=== PATIENT | male | born 1995 | race African-American/Black ===

== ENCOUNTER 2016-07-13 21:26 | Emergency (ER) | payer OTHER ==
[~2016-07-13] VITALS: Ht 175.3 cm; Wt 81.0 kg
[2016-07-13] MEDS ORDERED: KETOROLAC TROMETHAMINE 60 MG/2 ML VIAL IM ONE (22:15)
[2016-07-13] MEDS ORDERED: CYCLOBENZAPRINE HCL 10 MG TABLET PO ONE (22:15)
[2016-07-13 22:52] VITALS: BP 120/72
== END 2016-07-13 23:12 | disposition home or self-care (01) ==
LOC: EMS 21:27
DX: S43.402A Unspecified sprain of left shoulder joint, initial encounter (principal); W01.0XXA Fall on same level from slipping, tripping and stumbling without subsequent striking against object, initial encounter; Y93.89 Activity, other specified; Y92.89 Other specified places as the place of occurrence of the external cause; Y99.8 Other external cause status
CPT/HCPCS: 29105; 73030; 96372; 99283; J1885

== ENCOUNTER 2016-09-17 02:51 | Emergency (ER) | payer OTHER ==
[~2016-09-17] VITALS: Ht 172.7 cm; Wt 74.6 kg
[2016-09-17 03:02] LABS: BASOPHILS % (AUTO) 0.7 % (0.0-2.0); HEMATOCRIT 44.4 % (41-53); HEMOGLOBIN 15.2 g/dL (13.5-17.5); LYMPHOCYTES # (AUTO) 2.5 K/uL (1.0-4.8); LYMPHOCYTES % (AUTO) 34.1 % (22.0-44.0); MEAN CORPUSCULAR HGB CONC 34.3 G/dL (31.0-37.0); MEAN CORPUSCULAR VOLUME 96 fL (80-100); MONOCYTES # (AUTO) 0.6 K/uL (0.1-1.0); MONOCYTES % (AUTO) 8.3 % (2.0-9.0); NEUTROPHILS # (AUTO) 4.1 K/uL (1.8-7.7); NEUTROPHILS % (AUTO) 55.9 % (40.0-70.0); PLATELET COUNT (AUTO) 195 K/uL (150-450); RED BLOOD CELL COUNT(AUTO) 4.61 MIL/uL (4.50-5.90); RED CELL DISTRIBUTION WIDTH 13.6 % (11.5-14.5); WHITE BLOOD COUNT (AUTO) 7.3 K/uL (4.5-11.0)
[2016-09-17 03:11] LABS: ANION GAP 12 mmol/L (8-16); CALCIUM, TOTAL 8.5 mg/dL (8.8-10.5); CARBON DIOXIDE 25 mmol/L (22-29); CHLORIDE 106 mmol/L (98-107); CREATININE 1.35 mg/dL (0.60-1.30); GLOMERULAR FILTR. RATE CALC > 60 mL/min (>60); POTASSIUM 3.6 mmol/L (3.5-5.1); SODIUM SERUM 143 mmol/L (136-145); UREA NITROGEN, BLOOD 11 mg/dL (7-18)
[2016-09-17 04:32] LABS: APPEARANCE,URINE CLEAR (CLEAR); GLUCOSE, URINE (UA) NEGATIVE (NEGATIVE); KETONES,URINE NEGATIVE (NEGATIVE); LEUKOCYTE ESTERASE ,URINE NEGATIVE (NEGATIVE); OCCULT BLOOD,URINE NEGATIVE (NEGATIVE); PROTEIN,URINE NEGATIVE (NEGATIVE)
[2016-09-17 04:49] LABS: RBC,URINE None Seen /HPF (0-2); SQUAMOUS EPITHELIAL CELL,UR Rare /LPF (None Seen); WBC,URINE None Seen /HPF (0-5)
[2016-09-17 04:54] VITALS: BP 124/69
== END 2016-09-17 05:57 | disposition home or self-care (01) ==
LOC: EMS 02:52
DX: S06.0X9A Concussion with loss of consciousness of unspecified duration, initial encounter (principal); S51.011A Laceration without foreign body of right elbow, initial encounter; S05.11XA Contusion of eyeball and orbital tissues, right eye, initial encounter; S60.512A Abrasion of left hand, initial encounter; F10.129 Alcohol abuse with intoxication, unspecified; F14.10 Cocaine abuse, uncomplicated; V03.99XA Pedestrian with other conveyance injured in collision with car, pick-up truck or van, unspecified whether traffic or nontraffic accident, initial encounter; Y93.02 Activity, running; Y92.810 Car as the place of occurrence of the external cause; Y99.8 Other external cause status; Y90.8 Blood alcohol level of 240 mg/100 ml or more
CPT/HCPCS: 36415; 70450; 71010; 72125; 72170; 73080; 73130; 80048; 80307; 81001; 85025; 99285; G0480

== ENCOUNTER 2017-08-13 10:46 | Emergency (ER) | payer OTHER ==
[~2017-08-13] VITALS: Ht 175.3 cm; Wt 80.0 kg
[2017-08-13] MEDS ORDERED: IBUPROFEN 800 MG TABLET PO ONE (12:30)
[2017-08-13 12:52] VITALS: BP 129/75
== END 2017-08-13 12:53 | disposition home or self-care (01) ==
LOC: EMS 10:47
DX: S83.91XA Sprain of unspecified site of right knee, initial encounter (principal); R03.0 Elevated blood-pressure reading, without diagnosis of hypertension; F17.210 Nicotine dependence, cigarettes, uncomplicated; X50.9XXA Other and unspecified overexertion or strenuous movements or postures, initial encounter; Y93.89 Activity, other specified; Y92.89 Other specified places as the place of occurrence of the external cause; Y99.8 Other external cause status
CPT/HCPCS: 29505; 99284

== ENCOUNTER 2017-08-24 18:24 | Emergency (ER) | payer OTHER ==
[~2017-08-24] VITALS: Ht 175.3 cm; Wt 79.5 kg
[2017-08-24 20:20] VITALS: BP 116/84
[2017-08-24] MEDS ORDERED: KETOROLAC TROMETHAMINE 10 MG TABLET PO ONE (20:30)
== END 2017-08-24 21:05 | disposition home or self-care (01) ==
LOC: EMS 18:27
DX: M70.22 Olecranon bursitis, left elbow (principal); F17.210 Nicotine dependence, cigarettes, uncomplicated; Y93.89 Activity, other specified
CPT/HCPCS: 99284